=== PATIENT | female | born 1945 | race Caucasian/White ===

== ENCOUNTER 2022-05-23 08:45 | Outpatient (CLI) | payer MEDICARE ==
[2022-05-23] MEDS ORDERED: Magnevist 469MG/ML 20 ML VIAL ONE (12:20)
== END 2022-05-23 08:46 | disposition home or self-care (01) ==
LOC: CSHMRI 08:45
PROVIDERS: ATTEND Family Medicine
DX: R74.8 Abnormal levels of other serum enzymes (principal); D18.03 Hemangioma of intra-abdominal structures; R16.1 Splenomegaly, not elsewhere classified; K57.10 Diverticulosis of small intestine without perforation or abscess without bleeding; N28.1 Cyst of kidney, acquired; I51.7 Cardiomegaly
CPT/HCPCS: 74183; 82565; A9579